=== PATIENT | male | born 1985 | race Caucasian/White ===

== ENCOUNTER 2021-06-25 10:05 | Emergency (ER) | payer OTHER ==
[~2021-06-25] VITALS: Ht 160 cm; Wt 65.0 kg
[2021-06-25 11:37] LABS: COVID AG,FIA SOURCE NASOPHARYNGEAL
[2021-06-25 12:12] LABS: INFLUENZA TYPE A NEGATIVE FOR TYPE A (NEGATIVE)
[2021-06-25 12:14] LABS: INFLUENZA TYPE B POSITIVE FOR TYPE B (NEGATIVE)
[2021-06-25] MEDS ORDERED: ACETAMINOPHEN 500 MG TABLET PO ONE (13:30)
[2021-06-25 13:52] VITALS: BP 113/84
== END 2021-06-25 13:53 ==
LOC: EMS 10:08
DX: J10.1 Influenza due to other identified influenza virus with other respiratory manifestations (principal); Z20.822 Contact with and (suspected) exposure to COVID-19
CPT/HCPCS: 87426; 87804; 99283; U0003